=== PATIENT | male | born 1995 | race Caucasian/White ===

== ENCOUNTER 2021-09-07 09:51 | Outpatient (CLI) | payer OTHER | END 2021-09-07 10:07 | disposition home or self-care (01) | LOC: SONOGRAMA 09:51 | PROVIDERS: ATTEND Internal Medicine Gastroenterology | DX: R19.4 Change in bowel habit (principal); R10.32 Left lower quadrant pain ==

== ENCOUNTER 2021-11-30 06:46 | Emergency (ER) | payer OTHER ==
[~2021-11-30] VITALS: Ht 172.7 cm; Wt 70.3 kg
[2021-11-30] MEDS ORDERED: SYNTHROID100 MCG (07:13)
[2021-11-30] MEDS ORDERED: ONDANSETRON ODT4 MG PO (13:12)
[2021-11-30] MEDS ORDERED: PEPCID AC20 MG PO (13:12)
== END 2021-11-30 13:33 ==
LOC: ER 06:46
DX: R11.10 Vomiting, unspecified (principal); K29.70 Gastritis, unspecified, without bleeding; E86.0 Dehydration; A05.9 Bacterial foodborne intoxication, unspecified

== ENCOUNTER 2024-05-01 21:53 | Emergency (ER) | payer OTHER ==
[~2024-05-01] VITALS: Ht 170.2 cm; Wt 81.6 kg
[~2024-05-01 21:53] MED LIST: ONDANSETRON ODT4 MG PO; PEPCID AC20 MG PO; SYNTHROID100 MCG
[2024-05-02] MEDS ORDERED: KETOROLAC TROMETHAMINE 30 MG VIAL IV STA (01:35)
== END 2024-05-02 01:58 | disposition home or self-care (01) ==
LOC: ER 21:53
DX: S82.451A Displaced comminuted fracture of shaft of right fibula, initial encounter for closed fracture (principal); X58.XXXA Exposure to other specified factors, initial encounter; Y93.66 Activity, soccer; Y92.89 Other specified places as the place of occurrence of the external cause; Y99.9 Unspecified external cause status; E03.9 Hypothyroidism, unspecified